=== PATIENT | female | born 1960 | race African-American/Black ===

== ENCOUNTER 2016-11-29 10:43 | Emergency (ER) | payer SELFPAY ==
[~2016-11-29] VITALS: Ht 170.2 cm; Wt 77.1 kg
[2016-11-29 10:56] VITALS: BP 133/80
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
[2016-11-29] MEDS ORDERED: IBUPROFEN600 MG ORAL (11:19)
[2016-11-29 11:49] VITALS: BP 133/80
== END 2016-11-29 11:54 | disposition home or self-care (01) ==
LOC: EMR 11:28
DX: S13.4XXA Sprain of ligaments of cervical spine, initial encounter (principal); S40.011A Contusion of right shoulder, initial encounter; V43.62XA Car passenger injured in collision with other type car in traffic accident, initial encounter; Y92.410 Unspecified street and highway as the place of occurrence of the external cause
CPT/HCPCS: 99283